=== PATIENT | male | born 1995 | race Caucasian/White ===

== ENCOUNTER 2024-05-06 05:00 | Emergency (ER) | payer MEDICAID ==
[~2024-05-06] VITALS: Ht 167.6 cm; Wt 82.0 kg
[2024-05-06 05:18] VITALS: BP 130/93; PULSE 94; RESP 16; TEMP 36.7; O2SAT 99
[2024-05-06] MEDS: IBUPROFEN 400MG TABLET PO ONE (06:34)
[2024-05-06] MEDS ORDERED: IBUP-2028 PO (06:41)
== END 2024-05-06 07:34 | disposition home or self-care (01) ==
LOC: ER 05:00
DX: S60.021A Contusion of right index finger without damage to nail, initial encounter (principal); V89.2XXA Person injured in unspecified motor-vehicle accident, traffic, initial encounter; Y93.89 Activity, other specified; Y92.89 Other specified places as the place of occurrence of the external cause; Y99.8 Other external cause status
CPT/HCPCS: 29130; 73130; 99283